=== PATIENT | female | born 1930 ===

== ENCOUNTER 2016-12-18 06:43 | Day surgery (SDC) | payer MEDICARE, MEDICAID ==
[2016-11-28 08:28] VITALS: BMI 19.5
[2016-12-18] MEDS ORDERED: ceFAZolin IV 1 gm in Dextrose 0 ML IVPB ONE (07:18)
[2016-12-18] MEDS ORDERED: Lactated Ringer's 1,000 ML IV ONE (09:35)
[2016-12-18] MEDS ORDERED: Propofol 10 mg/ml Inj (20 ML) ONE (09:42)
[2016-12-18] MEDS ORDERED: Ofloxacin 0.3% Ophth Soln ONE (10:07)
--- NOTE | 2016-12-18 12:23 | OP ---
PROCEDURE DATE: 12/18/2016 PREOPERATIVE DIAGNOSIS: Chronic otitis media. POSTOPERATIVE DIAGNOSIS: Chronic otitis media. PROCEDURE: Right myringotomy with tube. SIGNIFICANT FINDINGS: Fluid noted behind the right TM. DESCRIPTION OF PROCEDURE: The patient was brought in room, placed in supine position. Anesthesia wa s initiated through LMA. The patient was draped in usual manner. Right ear was brought into view us ing operative microscope and ear speculum. Radial incision was made in the anterior inferior quadran t. Fluid was noted behind the TM and suctioned out. Tube was placed. Floxin was placed. The ear s peculum and microscope were taken out of position. The patient was taken off anesthesia and taken to recovery room in stable manner. Bhupendra Lewis MD cc: [id number] TT: 12/18/2016 12:22:33 jn
[2016-12-19 16:00] VITALS: BP 112/52; PULSE 82; RESP 16; TEMP 97.6; O2SAT 98
== END 2016-12-18 12:00 | disposition home or self-care (01) ==
LOC: C.SDS 06:43
PROVIDERS: ATTEND Otolaryngology
DX: H66.90 Otitis media, unspecified, unspecified ear (principal); E11.9 Type 2 diabetes mellitus without complications
CPT/HCPCS: 69436; 82948; J2704; J3010; J7120

== ENCOUNTER 2017-01-10 11:41 | Emergency (ER) | payer MEDICARE, MEDICAID ==
[2017-01-10 11:41] VITALS: BMI 19.5
[2017-01-10 11:58] VITALS: RESP 20; TEMP 97.6; O2SAT 100
[2017-01-10] MEDS ORDERED: Sodium Chloride 0.9% 1,000 ML IV ONE (12:47)
--- NOTE | 2017-01-10 13:21 | RAD ---
HISTORY: SOB COMPARISON: Chest x-ray performed 11/27/16 TECHNIQUE: Chest, one view. FINDINGS: Examination limited by habitus. LUNGS: Biapical pleural thickening. Mild bibasilar atelectasis. Please note that chest x-ray has limited sensitivity for the detection of pulmonary masses. PLEURA: No significant pleural effusion identified. No definite pneumothorax . CARDIOVASCULAR: Heart size appears within normal limits. Tortuous aorta containing atherosclerotic calcifications. OSSEOUS STRUCTURES: Calcific tendinitis, right shoulder. Acromioclavicular arthropathy. Degenerative changes. VISUALIZED UPPER ABDOMEN: Unremarkable. OTHER FINDINGS: None. IMPRESSION: Biapical pleural thickening. Mild bibasilar atelectasis.
[2017-01-10 13:30] LABS: BASO % 0.4 % (0.0-2.0); EOS # 0.1 K/uL (0.0-0.7); EOS % 1.9 % (0.0-4.0); HEMATOCRIT 33.3 % (34.0-47.0); LYMPH # 1.6 K/uL (1.0-4.3); LYMPH % 28.9 % (20.0-40.0); MEAN CELL VOLUME 87.5 fL (81.0-99.0); MEAN CORPUSCULAR HEMOGLOBIN 28.9 pg (27.0-31.0); MEAN CORPUSCULAR HGB CONC 33.1 g/dL (33.0-37.0); MEAN PLATELET VOLUME 7.9 fL (7.2-11.7); MONO # 0.4 K/uL (0.0-0.8); MONO % 8.2 % (0.0-10.0); RED CELL DISTRIBUTION WIDTH 13.9 % (11.5-14.5); WHITE BLOOD COUNT 5.5 K/uL (4.8-10.8)
--- NOTE | 2017-01-10 13:30 | C.PDOC ---
History Of Present Illness 86 year old female with a history of arthritis and DM, presents to the ED with complaints of bilateral leg pain for several years. Patient states the pain starts at the knees, slightly worse to the right, and radiates down. She notes she used to receive injections however that was stopped and she was started on pills and patches but they do not provide the same relief. The pain has become achy and patient feels her knees are weak and will give out, making her use her walker more that usual. Patient reports she feels anxious and nervous that she will fall and not be able to get up. Denies injury, numbness, swelling, or any other complaints at this time. Time Seen by Provider: 01/10/17 12:24 Chief Complaint (Nursing): Anxiety History Per: Patient History/Exam Limitations: no limitations Onset/Duration Of Symptoms: Days Current Symptoms Are (Timing): Still Present Severity: Mild Associated Symptoms: Anxiety Past Medical History Reviewed: Historical Data, Nursing Documentation, Vital Signs Vital Signs: Last Vital Signs Temp 97.6 F 01/10/17 15:10 Pulse 93 H 01/10/17 15:10 Resp 20 01/10/17 15:10 BP 148/75 01/10/17 15:10 Pulse Ox 100 01/10/17 15:10 - Medical History PMH: Anxiety, Arthritis Family History: States: Unknown Family Hx - Social History Hx Alcohol Use: Yes Hx Substance Use: No - Immunization History Hx Tetanus Toxoid Vaccination: No Hx Influenza Vaccination: No Hx Pneumococcal Vaccination: No Review Of Systems Except As Marked, All Systems Reviewed And Found Negative. Constitutional: Negative for: Fever Cardiovascular: Negative for: Chest Pain Respiratory: Negative for: Shortness of Breath Gastrointestinal: Negative for: Vomiting, Abdominal Pain Musculoskeletal: Positive for: Leg Pain Neurological: Positive for: Weakness. Negative for: Numbness Physical Exam - Physical Exam Appears: Non-toxic, No Acute Distress Skin: Normal Color, Warm, Dry Head: Atraumatic, Normacephalic Eye(s): bilateral: Normal Inspection Oral Mucosa: Moist Chest: Symmetrical, No Deformity Cardiovascular: Rhythm Regular Respiratory: Normal Breath Sounds, No Accessory Muscle Use, No Rales, No Rhonchi , No Wheezing Extremity: Normal ROM, Tenderness (+Tenderness to the bilateral knees), No Pedal Edema, No Calf Tenderness, Capillary Refill (< 2 seconds), No Deformity, No Swelling, No Other (No erythema or warmth to the bilateral legs) Pulses: Left Dorsalis Pedis: Normal, Right Dorsalis Pedis: Normal Neurological/Psych: Oriented x3, Normal Speech, Normal Cognition, Normal Motor, Normal Sensation ED Course And Treatment - Laboratory Results Result Diagrams: 01/10/17 13:24 01/10/17 13:24 ECG: Interpreted By Me, Viewed By Me ECG Rhythm: Sinus Rhythm ECG Interpretation: No Acute Changes Rate From EC O2 Sat by Pulse Oximetry: 100 (Room air) Pulse Ox Interpretation: Normal - Radiology CXR: Viewed By Me, Read By Radiologist CXR Interpretation: Yes: Other (Biapical pleural thickening. Mild bibasilar atelectasis.) Medical Decision Making Medical Decision Making: Impression: 86 year old female with bilateral knee pain and anxiety Plan: * CXR * EKG * Blood work * Urinalysis * IV fluids * Re-assess Progress: EKG and CXR show no acute changes or disease Upon reevaluation patient resting comfortable in no acute distress. She denies any chest pain or weakness. Patient has no signs of hemodynamic instability. I explained results to patient and daughter at bedside. Advise patient to take analgesics and to follow up with PCP Dr Elam. Disposition Counseled Patient/Family Regarding: Need For Followup, Rx Given - Disposition Referrals: Liana Elam DO [Doctor [facility]] - Disposition: HOME/ ROUTINE Disposition Time: 14:49 Condition: IMPROVED Additional Instructions: Nilsa laboratorios y EKG osiel normales Aplique crema en el yobani dos veces al da para cualquier dolor Siga con bradley mdico de cabecera Prescriptions: Diclofenac Sodium [Voltaren] 100 gm TP BID #1 gel..gram. Instructions: Osteoarthritis (ED) Print Language: HEBREW - POA Present On Arrival: None - Clinical Impression Clinical Impression: Anxiety, Arthralgia of knee - PA / MULTIFOLD OPERATOR / Resident Statement /DO has reviewed & agrees with the documentation as recorded. - Scribe Statement The provider has reviewed the documentation as recorded by the Scribe Brady Jean Baptiste. All medical record entries made by the Scribe were at my direction and personally dictated by me. I have reviewed the chart and agree that the record accurately reflects my personal performance of the history, physical exam, medical decision making, and the department course for this patient. I have also personally directed, reviewed, and agree with the discharge instructions and disposition.
[2017-01-10 13:38] LABS: CHLORIDE 100 mmol/L (98-107); RBC URINE < 1 /hpf (0-3); URINE BILIRUBIN NEGATIVE (NEGATIVE); URINE BLOOD NEGATIVE (NEGATIVE); URINE COLOR Yellow (YELLOW); URINE GLUCOSE (UA) NORMAL (Normal); URINE KETONE NEGATIVE (NEGATIVE); URINE LEUKOCYTE ESTERASE NEG Leu/uL (Negative); URINE PROTEIN NEGATIVE (NEGATIVE); URINE UROBILINOGEN NORMAL mg/dL (0.2-1.0)
[2017-01-10 13:39] LABS: SODIUM 140 mmol/L (132-148)
[2017-01-10 13:40] LABS: POTASSIUM 3.9 mmol/L (3.6-5.2)
[2017-01-10 13:42] LABS: ALB/GLOB RATIO 1.6 (1.0-2.1); ALKALINE PHOSPHATASE 75 U/L (38-126); AST/SGOT 21 U/L (14-36); BILIRUBIN,TOTAL 0.1 mg/dL (0.2-1.3); BLOOD UREA NITROGEN 7 mg/dL (7-17); CARBON DIOXIDE 25 mmol/L (22-30); GFR AFRICAN-AMERICAN > 60; TOTAL PROTEIN 6.5 g/dL (6.3-8.3)
[2017-01-10 13:43] LABS: ALT/SGPT 22 U/L (9-52); CALCIUM 9.1 mg/dl (8.6-10.4); GLUCOSE,RANDOM 107 mg/dL (65-105)
[2017-01-10] MEDS ORDERED: Sodium Chloride 0.9% 1,000 ML ONE (14:04)
[2017-01-10 15:11] VITALS: BP 148/75; PULSE 93
--- NOTE | 2017-02-08 11:55 | CARD ---
APPROVED REPORT EKG Measurement Heart [id number] <Conclusion> Normal sinus rhythm Low voltage QRS Borderline ECG
== END 2017-01-10 15:40 | disposition home or self-care (01) ==
LOC: C.ER 11:41
DX: M25.562 Pain in left knee (principal); M25.561 Pain in right knee; F41.9 Anxiety disorder, unspecified
CPT/HCPCS: 71010; 80053; 81001; 85025; 85610; 85730; 93005; 96360; 99284; J7040

== ENCOUNTER 2017-08-17 11:43 | Emergency (ER) | payer MEDICARE, MEDICAID ==
[2017-08-17 11:43] VITALS: BMI 19.5
[2017-08-17 12:27] LABS: URINE BILIRUBIN NEGATIVE (NEGATIVE); URINE BLOOD 1+ (NEGATIVE); URINE COLOR Straw (YELLOW); URINE GLUCOSE (UA) NORMAL (Normal); URINE KETONE NEGATIVE (NEGATIVE); URINE LEUKOCYTE ESTERASE NEG Leu/uL (Negative); URINE PROTEIN NEGATIVE (NEGATIVE); URINE UROBILINOGEN NORMAL mg/dL (0.2-1.0); WBC URINE < 1 /hpf (0-5)
[2017-08-17 12:30] LABS: RBC URINE 3 /hpf (0-3)
--- NOTE | 2017-08-17 12:55 | C.PDOC ---
History Of Present Illness 86 y/o female with PMHx of Diabetes presents to ED with complaints of left sided lower back pain for 1 week with associated urinary frequency. Patient denies abdominal pain, fever, diarrhea, hematuria or any other complaints at this time. Time Seen by Provider: 08/17/17 12:18 Chief Complaint (Nursing): Back Pain History Per: Patient History/Exam Limitations: no limitations Onset/Duration Of Symptoms: Days Current Symptoms Are (Timing): Still Present Quality Of Discomfort: "Pain" Past Medical History Reviewed: Historical Data, Nursing Documentation, Vital Signs Vital Signs: Last Vital Signs Temp 98.4 F 08/17/17 15:15 Pulse 78 08/17/17 15:15 Resp 20 08/17/17 15:15 BP 123/74 08/17/17 15:15 Pulse Ox 100 08/17/17 16:31 - Medical History PMH: Anxiety, Arthritis Surgical History: No Surg Hx Family History: States: No Known Family Hx - Social History Hx Alcohol Use: Yes Hx Substance Use: No - Immunization History Hx Tetanus Toxoid Vaccination: No Hx Influenza Vaccination: No Hx Pneumococcal Vaccination: No Review Of Systems Constitutional: Negative for: Fever, Chills Gastrointestinal: Negative for: Nausea, Vomiting, Abdominal Pain, Diarrhea Genitourinary: Positive for: Frequency. Negative for: Dysuria Musculoskeletal: Positive for: Back Pain. Negative for: Neck Pain Skin: Negative for: Rash Physical Exam - Physical Exam Appears: Non-toxic, No Acute Distress Skin: Warm, Dry, No Rash Head: Atraumatic, Normacephalic Eye(s): bilateral: Normal Inspection Oral Mucosa: Moist Neck: Normal ROM, Supple Cardiovascular: Rhythm Regular Respiratory: Normal Breath Sounds, No Rales, No Rhonchi, No Wheezing Gastrointestinal/Abdominal: Soft, No Tenderness, No Guarding, No Rebound Back: No CVA Tenderness, Other ((+)left parathoracic tenderness (+)mild inflammation of trapezius muscle) Extremity: Normal ROM, Capillary Refill (<2 seconds) Neurological/Psych: Oriented x3, Normal Speech, Normal Motor, Normal Sensation ED Course And Treatment - Laboratory Results Result Diagrams: 08/17/17 12:57 08/17/17 12:57 O2 Sat by Pulse Oximetry: 100 (RA) Pulse Ox Interpretation: Normal - CT Scan/US CT - Abd & Pelvis Other Rad Studies (CT/US): Read By Radiologist, Radiology Report Reviewed CT/US Interpretation: PROCEDURE: CT scan abdomen and pelvis dated 08/16/2017. HISTORY: Flank pain. Urinary frequency. COMPARISON: Comparison made with prior CT scan chest and abdomen dated 03/25/2016. TECHNIQUE: Contiguous axial images of the abdomen and pelvis. Oral contrast was administered. No IV contrast given. Coronal and Sagittal reformats generated. This CT exam was performed using one or more of the following dose reduction techniques: Automated exposure control, adjustment of the mA and/or kV according to patient size, and/or use of iterative reconstruction technique. Radiation dose: Total exam DLP = 368.38 mGy-cm. FINDINGS: LOWER THORAX: Minor atelectasis - scarring changes both lung bases including the lingular and middle lobe regions right greater than left. There is also small approximately 3 mm nodule in the right middle lobe with vague elliptical shaped pleural-based nodular density along the anterior aspect of the middle lobe. No effusion or basilar pneumothorax. There is a small hiatal hernia which contains oral contrast material likely due to reflux however the possibility of some dysmotility and incomplete clearing of the esophagus not excluded. Clinical correlation recommended. Heart size is upper limits of normal. No significant pericardial effusion. LIVER: Liver exhibits normal size measuring approximately 15.1 cm in CC dimension. No obvious hepatic mass collection or calcification. GALLBLADDER AND BILE DUCTS: Gallbladder is physiologically distended. No evidence of intraluminal gallbladder calculi. PANCREAS: The pancreas is atrophic and fatty replaced. No pancreatic mass collection or calcification. SPLEEN: Spleen exhibits normal size and attenuation pattern without mass collection or calcification. ADRENALS: Left adrenal gland exhibits nodular appearance. Followup at interval recommended to assess stability. . KIDNEYS AND URETERS: Kidneys demonstrate symmetric size. No evidence of nephrolithiasis or hydronephrosis. . Small approximately 2 cm partially exophytic cyst anterior aspect upper pole right kidney. BLADDER: Urinary bladder is physiologically distended. No evidence of intraluminal urinary bladder calculi. REPRODUCTIVE: The uterus appears unremarkable. APPENDIX: Normal-appearing appendix best seen on coronal image number [id number]. No periappendiceal inflammatory changes. BOWEL: Evaluation of the bowel is somewhat limited due to incomplete opacification. The stomach is markedly distended with oral contrast material. Multiple relatively nondistended air- filled loops of small bowel suggesting mild ileus. No evidence of acute mechanical small bowel obstruction. Stool and air seen throughout the large bowel. No definitive abnormal mural wall thickening. PERITONEUM: No free air. No free or loculated fluid collections. LYMPH NODES: No significant/bulky adenopathy. VASCULATURE: Unremarkable. No aortic aneurysm. BONES: Multilevel degenerative spondylosis of the lower thoracic and lumbar spine. OTHER FINDINGS: Calcified injection granulomata both buttocks. IMPRESSION: No evidence of nephrolithiasis or hydronephrosis. Small cyst upper pole right kidney. . Nodular appearance left adrenal gland. Follow-up CT scan at interval could be performed to assess stability. . Small hiatal hernia with small amount of oral contrast material in the distal esophagus that could be due to reflux however I dysmotility not excluded. Medical Decision Making Medical Decision Making: On re-exam, the patient reports improvement of symptoms. Lungs are CTA, heart is RRR, abdomen is soft, non-tender and tolerating PO well. Ambulatory in the ED with steady gait. Follow up with the medical doctor within 1-2 days. Return if worsened. Disposition - Disposition Referrals: Rc Elam APN [Advanced Practice Nurse] - Disposition: HOME/ ROUTINE Disposition Time: 15:44 Condition: GOOD Additional Instructions: Follow up with the medical doctor within 1-2 days, return if worsened. Prescriptions: Acetaminophen [Tylenol] 325 mg PO Q6 PRN #30 tab PRN Reason: Pain, Mild (1-3) Instructions: Flank Pain (ED) Forms: [facility] (Yemeni) Print Language: ROMANIAN - POA Present On Arrival: None - Clinical Impression Clinical Impression: Thoracic back pain - PA / LAB ANIMAL TECHNICIAN / Resident Statement MD/DO has reviewed & agrees with the documentation as recorded. - Scribe Statement The provider has reviewed the documentation as recorded by the Nabor Simpson All medical record entries made by the Nabor were at my direction and personally dictated by me. I have reviewed the chart and agree that the record accurately reflects my personal performance of the history, physical exam, medical decision making, and the department course for this patient. I have also personally directed, reviewed, and agree with the discharge instructions and disposition.
[2017-08-17 13:03] LABS: BASO % 0.2 % (0.0-2.0); EOS # 0.1 K/uL (0.0-0.7); EOS % 1.9 % (0.0-4.0); HEMATOCRIT 35.3 % (34.0-47.0); LYMPH # 1.4 K/uL (1.0-4.3); LYMPH % 22.4 % (20.0-40.0); MEAN CELL VOLUME 86.4 fL (81.0-99.0); MEAN CORPUSCULAR HEMOGLOBIN 28.6 pg (27.0-31.0); MEAN CORPUSCULAR HGB CONC 33.1 g/dL (33.0-37.0); MEAN PLATELET VOLUME 8.2 fL (7.2-11.7); MONO # 0.7 K/uL (0.0-0.8); MONO % 10.4 % (0.0-10.0); NRBC % 0.1 % (0.0-2.0); RED CELL DISTRIBUTION WIDTH 15.4 % (11.5-14.5); WHITE BLOOD COUNT 6.3 K/uL (4.8-10.8)
[2017-08-17] MEDS ORDERED: Iohexol 240 (50 ml) ONE (13:14)
[2017-08-17 13:15] LABS: ALB/GLOB RATIO 1.8 (1.0-2.1); ALKALINE PHOSPHATASE 75 U/L (38-126); ALT/SGPT 29 U/L (9-52); AST/SGOT 22 U/L (14-36); BILIRUBIN,TOTAL 0.7 mg/dL (0.2-1.3); BLOOD UREA NITROGEN 8 mg/dL (7-17); CALCIUM 8.8 mg/dl (8.6-10.4); CARBON DIOXIDE 26 mmol/L (22-30); CHLORIDE 99 mmol/L (98-107); GFR AFRICAN-AMERICAN > 60; GLUCOSE,RANDOM 118 mg/dL (65-105); POTASSIUM 4.1 mmol/L (3.6-5.2); SODIUM 135 mmol/L (132-148); TOTAL PROTEIN 6.6 g/dL (6.3-8.3)
[2017-08-17 15:16] VITALS: BP 123/74; PULSE 78; RESP 20; TEMP 98.4
--- NOTE | 2017-08-17 15:27 | CT ---
PROCEDURE: CT scan abdomen and pelvis dated 08/16/2017. HISTORY: Flank pain. Urinary frequency. COMPARISON: Comparison made with prior CT scan chest and abdomen dated 03/25/2016. TECHNIQUE: Contiguous axial images of the abdomen and pelvis. Oral contrast was administered. No IV contrast given. Coronal and Sagittal reformats generated. This CT exam was performed using one or more of the following dose reduction techniques: Automated exposure control, adjustment of the mA and/or kV according to patient size, and/or use of iterative reconstruction technique. Radiation dose: Total exam DLP = 368.38 mGy-cm. FINDINGS: LOWER THORAX: Minor atelectasis - scarring changes both lung bases including the lingular and middle lobe regions right greater than left. There is also small approximately 3 mm nodule in the right middle lobe with vague elliptical shaped pleural-based nodular density along the anterior aspect of the middle lobe. No effusion or basilar pneumothorax. There is a small hiatal hernia which contains oral contrast material likely due to reflux however the possibility of some dysmotility and incomplete clearing of the esophagus not excluded. Clinical correlation recommended. Heart size is upper limits of normal. No significant pericardial effusion. LIVER: Liver exhibits normal size measuring approximately 15.1 cm in CC dimension. No obvious hepatic mass collection or calcification. GALLBLADDER AND BILE DUCTS: Gallbladder is physiologically distended. No evidence of intraluminal gallbladder calculi. PANCREAS: The pancreas is atrophic and fatty replaced. No pancreatic mass collection or calcification. SPLEEN: Spleen exhibits normal size and attenuation pattern without mass collection or calcification. ADRENALS: Left adrenal gland exhibits nodular appearance. Followup at interval recommended to assess stability. . KIDNEYS AND URETERS: Kidneys demonstrate symmetric size. No evidence of nephrolithiasis or hydronephrosis. . Small approximately 2 cm partially exophytic cyst anterior aspect upper pole right kidney. BLADDER: Urinary bladder is physiologically distended. No evidence of intraluminal urinary bladder calculi. REPRODUCTIVE: The uterus appears unremarkable. APPENDIX: Normal-appearing appendix best seen on coronal image number [id number]. No periappendiceal inflammatory changes. BOWEL: Evaluation of the bowel is somewhat limited due to incomplete opacification. The stomach is markedly distended with oral contrast material. Multiple relatively nondistended air-filled loops of small bowel suggesting mild ileus. No evidence of acute mechanical small bowel obstruction. Stool and air seen throughout the large bowel. No definitive abnormal mural wall thickening. PERITONEUM: No free air. No free or loculated fluid collections. LYMPH NODES: No significant/bulky adenopathy. VASCULATURE: Unremarkable. No aortic aneurysm. BONES: Multilevel degenerative spondylosis of the lower thoracic and lumbar spine. OTHER FINDINGS: Calcified injection granulomata both buttocks. IMPRESSION: No evidence of nephrolithiasis or hydronephrosis. Small cyst upper pole right kidney. . Nodular appearance left adrenal gland. Follow-up CT scan at interval could be performed to assess stability. . Small hiatal hernia with small amount of oral contrast material in the distal esophagus that could be due to reflux however I dysmotility not excluded.
[2017-08-17 15:47] VITALS: O2SAT 100
== END 2017-08-17 15:57 | disposition home or self-care (01) ==
LOC: C.ER 11:43
DX: M54.6 Pain in thoracic spine (principal); E11.9 Type 2 diabetes mellitus without complications

== ENCOUNTER 2018-04-17 10:25 | Emergency (ER) | payer MEDICARE, MEDICAID ==
[2018-04-17 10:25] VITALS: BMI 19.5
[2018-04-17 10:32] VITALS: BP 133/70; PULSE 88; RESP 18; TEMP 97.7; O2SAT 98
[2018-04-17] MEDS ORDERED: Sodium Chloride 0.9% 500 ML IV ONE (11:29)
--- NOTE | 2018-04-17 11:30 | C.PDOC ---
History Of Present Illness 87 y/o female presents to ED with c/o epigastric abdominal pain associated with 1 episode of diarrhea. Patient states yesterday she accidentally swallowed a hearing air thinking it was her medication. Sje is concerned she may not have passed it yet. Patient denies chest pain, SOB, vomiting, fever, throart pain, wheezing, or any other complaints at this time. Time Seen by Provider: 04/17/18 10:40 Chief Complaint (Nursing): Abdominal Pain History Per: Patient History/Exam Limitations: no limitations Onset/Duration Of Symptoms: Days Current Symptoms Are (Timing): Still Present Severity: Mild Location Of Pain/Discomfort: Epigastric Associated Symptoms: Diarrhea Past Medical History Reviewed: Historical Data, Nursing Documentation, Vital Signs Vital Signs: Last Vital Signs Temp 97.7 F 04/17/18 10:29 Pulse 88 04/17/18 10:29 Resp 18 04/17/18 10:29 BP 133/70 04/17/18 10:29 Pulse Ox 98 04/17/18 12:24 - Medical History PMH: Anxiety, Arthritis Surgical History: No Surg Hx Family History: States: No Known Family Hx - Social History Hx Alcohol Use: Yes Hx Substance Use: No - Immunization History Hx Tetanus Toxoid Vaccination: No Hx Influenza Vaccination: No Hx Pneumococcal Vaccination: No Review Of Systems Constitutional: Negative for: Fever, Chills Cardiovascular: Negative for: Chest Pain Respiratory: Negative for: Cough, Shortness of Breath Gastrointestinal: Positive for: Abdominal Pain, Diarrhea. Negative for: Nausea , Vomiting Genitourinary: Negative for: Dysuria, Hematuria Skin: Negative for: Rash Physical Exam - Physical Exam Appears: Well, Non-toxic, No Acute Distress, Other (speaking in full sentences) Skin: Warm, Dry, No Rash Head: Normacephalic Eye(s): bilateral: Normal Inspection Oral Mucosa: Moist Throat: Normal, No Erythema, No Exudate, No Drooling Neck: Normal, Normal ROM, Supple Cardiovascular: Rhythm Regular Respiratory: Normal Breath Sounds, No Rales, No Rhonchi, No Wheezing Gastrointestinal/Abdominal: Normal Exam, Bowel Sounds, Soft, No Tenderness Back: Normal Inspection, No CVA Tenderness Neurological/Psych: Oriented x3 ED Course And Treatment - Laboratory Results Result Diagrams: 04/17/18 11:34 04/17/18 11:34 O2 Sat by Pulse Oximetry: 98 (RA) Pulse Ox Interpretation: Normal - Other Rad obs series X-Ray: Interpreted by Me, Viewed By Me (no radioopaque FB) Progress Note: Blood work, Obstructive series xray ordered and reviewed. Patient given IV NS bolus. Reevaluation Time: 14:00 Reassessment Condition: Improved (On reassessment, patient is resting comfortably, in no pain/distress. On exam, abdomen is soft and nontender. Blood work/UA unremarkable except for mild anemia. Obs series without FBs. Patient discharged home, was instructed to follow up with PMD in 1-2 days. She understands she should return to ED if symptoms worsen.) Disposition Counseled Patient/Family Regarding: Studies Performed, Diagnosis, Need For Followup - Disposition Referrals: Liana Elam DO [Doctor Osteopathy] - Disposition: HOME/ ROUTINE Disposition Time: 14:00 Condition: STABLE Instructions: Acute Abdomen (Belly Pain), Adult (DC) Forms: [facility] (Turkish) Print Language: ARABIC - Clinical Impression Clinical Impression: Abdominal pain, Vomiting, Diarrhea - Scribe Statement The provider has reviewed the documentation as recorded by the Scribaly Simpson All medical record entries made by the Kingibaly were at my direction and personally dictated by me. I have reviewed the chart and agree that the record accurately reflects my personal performance of the history, physical exam, medical decision making, and the department course for this patient. I have also personally directed, reviewed, and agree with the discharge instructions and disposition.
[2018-04-17 11:38] LABS: BASO % 0.7 % (0.0-2.0); EOS # 0.1 K/uL (0.0-0.7); EOS % 1.2 % (0.0-4.0); HEMOGLOBIN 10.8 g/dL (11.0-16.0); LYMPH # 1.1 K/uL (1.0-4.3); LYMPH % 23.2 % (20.0-40.0); MEAN CELL VOLUME 86.6 fL (81.0-99.0); MEAN CORPUSCULAR HEMOGLOBIN 29.1 pg (27.0-31.0); MEAN CORPUSCULAR HGB CONC 33.6 g/dL (33.0-37.0); MONO # 0.6 K/uL (0.0-0.8); MONO % 12.3 % (0.0-10.0); NEUT % 62.6 % (50.0-75.0); RBC 3.69 Mil/uL (3.80-5.20); RED CELL DISTRIBUTION WIDTH 14.6 % (11.5-14.5); WHITE BLOOD COUNT 4.8 K/uL (4.8-10.8)
[2018-04-17 11:48] LABS: URINE BILIRUBIN NEGATIVE (NEGATIVE); URINE BLOOD NEGATIVE (NEGATIVE); URINE CLARITY Clear (Clear); URINE COLOR Yellow (YELLOW); URINE GLUCOSE (UA) 2+ mg/dL (Normal); URINE LEUKOCYTE ESTERASE NEG Leu/uL (Negative); URINE PROTEIN NEGATIVE (NEGATIVE); URINE UROBILINOGEN NORMAL mg/dL (0.2-1.0)
[2018-04-17 11:50] LABS: ALB/GLOB RATIO 1.7 (1.0-2.1); ALBUMIN 4.3 g/dL (3.5-5.0); ALT/SGPT 20 U/L (9-52); AST/SGOT 16 U/L (14-36); BLOOD UREA NITROGEN 5 mg/dL (7-17); CALCIUM 9.5 mg/dl (8.6-10.4); GFR AFRICAN-AMERICAN > 60; GFR NON-AFRICAN AMERICAN > 60; LIPASE 59 U/L (23-300)
--- NOTE | 2018-04-17 12:33 | RAD ---
Date of service: 04/17/2018 PROCEDURE: Radiographs of the chest and abdomen (obstructive series) HISTORY: FOREIGN BODY INGESTION COMPARISON: CT scan of the abdomen pelvis dated 08/17/2017; chest radiograph dated 01/10/2017. TECHNIQUE: AP radiograph of the chest, with upright and supine radiographs of the abdomen. FINDINGS: CHEST: Lungs: Clear. Cardiovascular: Atherosclerotic aortic calcifications. Normal size heart. No pulmonary vascular congestion. Pleura: No pleural fluid. No pneumothorax. Other findings: None. ABDOMEN AND PELVIS: Bowel: Prominent amount of retained colonic stool. Unremarkable bowel gas pattern. No evidence of mechanical obstruction. Free air: None. Bones: Unremarkable. Other findings: Stable calcifications overlying the left iliac bone and right femoral head within the posterior soft tissues. IMPRESSION: Prominent amount of retained colonic stool. No radiopaque foreign body.
== END 2018-04-17 14:05 | disposition home or self-care (01) ==
LOC: C.ER 10:25
DX: R10.13 Epigastric pain (principal); R11.10 Vomiting, unspecified; R19.7 Diarrhea, unspecified